=== PATIENT | male | born 1990 | race Caucasian/White ===

== ENCOUNTER 2018-03-27 16:04 | Emergency (ER) | payer BC ==
--- NOTE | 2018-03-27 16:11 | PDOC ---
Rapid Medical Evaluation Chief Complaint: Pain Time Seen by Provider: 03/27/18 16:08 Medical Evaluation: Allergies Allergy/AdvReac Type Severity Reaction Status Date / Time No Known Allergies Allergy Verified 11/09/15 18:09 03/27/18 16:10 I have performed a brief in-person evaluation of this patient. The patient presents with a chief complaint of: R testes pain x 6 days Pertinent physical exam findings:deferred to FT provider I have ordered the following: ua/std/US The patient will proceed to the ED for further evaluation. Discharge Disposition - Diagnosis Testicular pain, right - Referrals - Patient Instructions - Post Discharge Activity
[2018-03-27 16:12] VITALS: BP 134/87; PULSE 122; TEMP 97.9; BMI 37.3
--- NOTE | 2018-03-27 16:36 | PDOC ---
History of Present Illness - General Chief Complaint: Pain Stated Complaint: TESTICLE PAIN Time Seen by Provider: 03/27/18 16:08 - History of Present Illness Initial Comments: 27-year-old male without any comorbidities presents for evaluation of right testicle pain 3 days. He states the pain has been intermittent and not associated with any other symptoms. He describes his pain as achy he is unsure of any exacerbating or relieving factors. 03/27/18 16:34 Past History - Past Medical History Allergies/Adverse Reactions: Allergies Allergy/AdvReac Type Severity Reaction Status Date / Time No Known Allergies Allergy Verified 03/27/18 16:28 Home Medications: Ambulatory Orders Doxycycline Hyclate 100 mg PO BID #20 tablet 03/27/18 COPD: No - Immunization History Td Vaccination: No TDAP Vaccination: No Immunization Up to Date: No - Suicide/Smoking/Psychosocial Hx Smoking Status: No Smoking History: Never smoked Number of Cigarettes Smoked Daily: 0 Hx Alcohol Use: No Drug/Substance Use Hx: No Review of Systems - Review of Systems : Yes: See HPI, Pain, Testicular Pain All Other Systems: Reviewed and Negative *Physical Exam - Vital Signs Last Vital Signs Temp Pulse Resp BP Pulse Ox 97.9 F 122 H 18 134/87 99 03/27/18 16:07 03/27/18 16:07 03/27/18 16:07 03/27/18 16:07 03/27/18 16:07 - Physical Exam Comments: GENERAL: The patient is awake, alert, and fully oriented, in no acute distress. HEAD: Normal with no signs of trauma. NECK: Normal range of motion, supple without lymphadenopathy, JVD, or masses. LUNGS: Breath sounds equal, clear to auscultation bilaterally. No wheezes, and no crackles. HEART: Regular rate and rhythm, normal S1 and S2 without murmur, rub or gallop. ABDOMEN: Soft, nontender, normoactive bowel sounds. No guarding, no rebound. No masses. EXTREMITIES: Normal range of motion, no edema. No clubbing or cyanosis. No cords, erythema, or tenderness. NEUROLOGICAL: Cranial nerves II through XII grossly intact. Normal speech, normal gait. PSYCH: Normal mood, normal affect. SKIN: Warm, Dry, normal turgor, no rashes or lesions noted. External genitalia are normal there is no tenderness on the left testicle there is mild discomfort about the epididymis on the right testicle there is no real relief or exacerbation of symptoms with elevation of testicles 03/27/18 16:35 Medical Decision Making - Medical Decision Making Testicular torsion seems unlikely however and ultrasound was ordered I will check his urine and GC chlamydia. This is most likely epididymitis. 03/27/18 16:35 03/27/18 18:04 Ultrasound negative *DC/Admit/Observation/Transfer Diagnosis at time of Disposition: Testicular pain, right, Epididymo-orchitis without abscess - Discharge Dispostion Disposition: HOME Condition at time of disposition: Stable Decision to Admit order: No - Prescriptions Prescriptions: Doxycycline Hyclate 100 mg PO BID #20 tablet - Referrals Referrals: Britton English MD [Primary Care Provider] - - Patient Instructions Printed Discharge Instructions: DI for Epididymitis Additional Instructions: Leave your experiencing an infection and your epididymis gland which is a gland above your testicle. I've given you a dose of antibiotics in the emergency room and you also require a home dose of another antibiotics for 7 days. Please take all the medication as directed and follow-up with your primary care physician in the next 1-2 days. Return to the emergency room should her symptoms worsen or go unresolved prior to follow-up. Your ultrasound today was negative. - Post Discharge Activity
[2018-03-27 17:18] LABS: URINE APPEARANCE CLEAR; URINE BILIRUBIN NEGATIVE (<2.0 mg/dL); URINE BLOOD NEGATIVE (NEGATIVE); URINE COLOR STRAW; URINE GLUCOSE (UA) NEGATIVE (NEGATIVE); URINE KETONE NEGATIVE (NEGATIVE); URINE LEUK ESTERASE NEGATIVE (NEGATIVE); URINE NITRITE NEGATIVE (NEGATIVE); URINE PROTEIN NEGATIVE (NEGATIVE); URINE UROBILINOGEN NEGATIVE mg/dL (0.2-1.0)
== END 2018-03-27 18:06 | disposition home or self-care (01) ==
LOC: JERFT 16:04
DX: N50.811 Right testicular pain (principal); N45.3 Epididymo-orchitis
CPT/HCPCS: 36415; 76870-TC; 81003; 87086; 87491; 87591; 99281-25